=== PATIENT | male | born 2000 | race Two or more races ===

== ENCOUNTER 2023-05-30 13:05 | Day surgery (SDC) | payer BC, OTHER ==
[~2023-05-30] VITALS: Ht 175.3 cm; Wt 118.9 kg
[2023-05-30] MEDS ORDERED: ALPR1TAB3 PO (13:49)
[2023-05-30] MEDS ORDERED: fentaNYL 100 MCG/2 ML INJECTION ONE (14:50)
[2023-05-30] MEDS ORDERED: ROCURONIUM BROMIDE 50MG/5ML VIAL ONE (14:51)
[2023-05-30] MEDS ORDERED: MIDAZOLAM INJ 2MG/2ML VIAL ONE (14:51)
[2023-05-30] MEDS ORDERED: LIDOCAINE 2% 100MG/5ML SDV (FOR ANES.) ONE (14:51)
[2023-05-30] MEDS ORDERED: propofoL 200 MG/20 ML VIAL ONE (14:51)
[2023-05-30] MEDS ORDERED: ONDANSETRON 4MG 2ML VIAL ONE (14:52)
[2023-05-30] MEDS ORDERED: CIPRODEX OTIC SUSP 7.5ML As Ordered ONE (15:30)
[2023-05-30] MEDS ORDERED: fentaNYL 100 MCG/2 ML INJECTION IV PRN (16:15)
[2023-05-30] MEDS ORDERED: ONDANSETRON 4MG 2ML VIAL IV PRN (16:15)
[2023-05-30 16:45] VITALS: BP 109/55
[2023-05-30 17:15] VITALS: TEMP 97.3; O2SAT 96
== END 2023-05-30 17:38 | disposition home or self-care (01) ==
LOC: M SDC 13:05
PROVIDERS: ATTEND Otolaryngology
DX: T16.2XXA Foreign body in left ear, initial encounter (principal); T16.1XXA Foreign body in right ear, initial encounter; Y92.9 Unspecified place or not applicable
CPT/HCPCS: 69205; 88300; J1100; J2250; J2405; J3010

== ENCOUNTER 2024-06-27 10:28 | Emergency (ER) | payer BC, MEDICAID ==
[~2024-06-27] VITALS: Ht 188 cm; Wt 115.5 kg
[~2024-06-27 10:28] MED LIST: ALPR1TAB3 PO
[2024-06-27 10:53] LABS: BASO % 0.3 % (0.0-1.0); EOS # 0.1 10^3/uL (0.0-0.5); EOS % 0.8 % (0.0-3.0); HEMATOCRIT 44.6 % (42.0-52.0); HEMOGLOBIN 14.8 g/dl (13.5-17.5); LYMPH # 1.8 10^3/uL (1.5-5.0); LYMPH % 18.9 % (24.0-44.0); MEAN CORPUSCULAR HEMOGLOBIN 27.4 pg (27.0-33.0); MEAN CORPUSCULAR HGB CONC 33.2 g/dl (32.0-36.5); MEAN CORPUSCULAR VOLUME 82.4 fl (80.0-96.0); MONO # 0.6 10^3/uL (0.0-0.8); MONO % 6.6 % (2.0-8.0); NEUTROPHILS # 6.9 10^3/uL (1.5-8.5); NEUTROPHILS % 72.4 % (36.0-66.0); PLATELET COUNT, AUTOMATED 315 10^3/uL (150-450); RED BLOOD COUNT 5.41 10^6/uL (4.30-6.10); WHITE BLOOD COUNT 9.5 10^3/uL (4.0-10.0)
[2024-06-27] MEDS ORDERED: LAMO150T3 PO (10:58)
[2024-06-27 11:25] LABS: ALBUMIN 4.2 G/DL (3.2-5.2); ALKALINE PHOSPHATASE 112 U/L (46-116); ALT/SGPT 18 U/L (7.0-40); AST/SGOT 13 U/L (<34); BILIRUBIN,DIRECT 0.1 MG/DL (<0.4); BILIRUBIN,TOTAL 0.4 MG/DL (0.3-1.2); BLOOD UREA NITROGEN 11 MG/DL (9-23); CALCIUM LEVEL 10.4 MG/DL (8.5-10.1); CARBON DIOXIDE LEVEL 20 MMOL/L (20-31); CHLORIDE LEVEL 105 MMOL/L (98-107); GLOMERULAR FILTRATION RATE > 60.0 (>60); GLUCOSE, FASTING 90 MG/DL (60-100); POTASSIUM SERUM 4.6 MMOL/L (3.5-5.1); SODIUM LEVEL 139 MMOL/L (136-145); TOTAL PROTEIN 7.7 G/DL (5.7-8.2)
[2024-06-27] MEDS: lamoTRIgine 100MG TAB PO ONE (11:40)
[2024-06-27 12:13] VITALS: BP 149/86; TEMP 97.2; O2SAT 91
[2024-06-27] MEDS ORDERED: LAMI1TAB9 PO (12:20)
== END 2024-06-27 12:29 | disposition home or self-care (01) ==
LOC: M ED 10:28 → EDBD 10:28 → M ED 12:29
DX: G40.909 Epilepsy, unspecified, not intractable, without status epilepticus (principal); Z91.011 Allergy to milk products; Z91.09 Other allergy status, other than to drugs and biological substances; Z79.899 Other long term (current) drug therapy